=== PATIENT | male | born 1980 | race American Indian/Alaskan Native ===

== ENCOUNTER 2020-10-02 08:43 | Emergency (ER) | payer SELFPAY ==
[2020-10-02 09:04] VITALS: BP 154/92
--- NOTE | 2020-10-02 11:00 | Emergency Department Report ---
Chief Complaint: Back Pain/Injury Stated Complaint: LOW BACK PAIN Time Seen by Provider: 10/02/20 10:50 - HPI History of Present Illness: 39-year-old morbid obese -[place] male presents to the emergency room for chronic back pain. Patient states he had surgery on his back June [address] Valerio at [facility]. Patient states he has been back several times complaining of pain and feels it is swollen back there. Patient denies any recent trauma, no fever no chills, no urinary or bowel incontinent or trouble walking. Patient states the pain medication he is on is meloxicam. - Exam Vital Signs: Vital Signs 10/02/20 09:04 Temperature 98.4 F Pulse Rate 89 Respiratory 16 Rate Blood Pressure 154/92 [Right] O2 Sat by Pulse 98 Oximetry Physical Exam: Patient is alert and oriented x3 no acute distress nontoxic in appearance Back full range of motion, 4 inch midline vertebral scar appreciated, no erythematous no edema test no streaking no concerns for cellulitis. Tenderness to the paraspinal on the right side of the vertebrals. Patient is amatory without difficulties full range of motion. MSE screening note: Focused history and physical exam performed. Due to findings the following was ordered: 39-year-old morbid obese -[place] male presents to the emergency room for chronic back pain. Patient states he had surgery on his back [address] Valerio at [facility]. Patient states he has been back several times complaining of pain and feels it is swollen back there. Patient denies any recent trauma, no fever no chills, no urinary or bowel incontinent or trouble walking. Patient states the pain medication he is on is meloxicam. Discussed with patient he should follow back up with [facility]. Will refer patient to another back specialist per his request. ED Disposition for MSE Clinical Impression: Chronic back pain greater than 3 months duration Disposition: MED SCREENING EXAM-LEFT Is pt being admited?: No Does the pt Need Aspirin: No Condition: Stable Additional Instructions: Please continue with pain medication and follow-up with solar project coordination specialist. Referrals: GIDEON BUSTILLOS MD [Primary Care Provider] - 3-5 Days [facility] [Provider Group] - 3-5 Days [facility] [Provider Group] - 3-5 Days NAHOMI RICH II, MD [Staff Physician] - 3-5 Days
== END 2020-10-02 10:58 | disposition left against medical advice (07) ==
LOC: ED 08:43
DX: M54.5 Low back pain (principal); Z53.21 Procedure and treatment not carried out due to patient leaving prior to being seen by health care provider